=== PATIENT | female | born 1980 | race Caucasian/White ===

== ENCOUNTER 2017-12-12 06:11 | Day surgery (SDC) | payer OTHER ==
[2017-12-04 16:54] VITALS: BMI 33.6
[2017-12-12] MEDS ORDERED: ROPIVACAINE HCL 0.5% 30ML VIAL ONE (07:04)
[2017-12-12] MEDS ORDERED: MIDAZOLAM HCL 2 MG/2 ML SINGLE DOSE VIAL ONE (07:16)
[2017-12-12] MEDS ORDERED: DEXAMETHASONE SOD PHOSPHATE 4 MG/1 ML VIAL ONE (07:16)
[2017-12-12] MEDS ORDERED: SUCCINYLCHOLINE CHLORIDE 200 MG/10 ML VIAL ONE (07:16)
[2017-12-12] MEDS ORDERED: KETOROLAC TROMETHAMINE 30 MG/1 ML VIAL ONE (07:16)
[2017-12-12] MEDS ORDERED: ONDANSETRON 4 MG/2 ML VIAL ONE (07:16)
[2017-12-12] MEDS ORDERED: PROPOFOL 20 ML ONE (07:16)
[2017-12-12] MEDS ORDERED: PROMETHAZINE HCL 25 MG/1 ML VIAL ONE (07:45)
[2017-12-12] MEDS ORDERED: ceFAZolin SODIUM 1 GM VIAL ONE (07:59)
[2017-12-12] MEDS ORDERED: oxyCODONE HCL 5 MG TABLET PO PRN (08:50)
[2017-12-12] MEDS ORDERED: LACTATED RINGERS SOLUTION 1,000 ML IV SCH (09:00)
--- NOTE | 2017-12-12 09:50 | OP ---
DATE OF OPERATION: 12/12/2017 PREOPERATIVE DIAGNOSIS: 1. Left wrist triangular fibrocartilage complex tear. 2. Left wrist extensor carpi ulnaris tendinosis/tendinitis. OPERATIVE PROCEDURE: 1. Left wrist operative arthroscopy with debridement of triangular fibrocartilage complex. 2. Left wrist open tenosynovectomy/tenolysis extensor carpi ulnaris tendon. SURGEON: Sofia Flores MD [employer] OPERATIONS DIRECTOR: ISIDRO Diaz ANESTHESIA: General. COMPLICATIONS: None. ESTIMATED BLOOD LOSS: Minimal. INDICATIONS FOR PROCEDURE: The patient is a 37-year-old female with the above findings who failed conservative management, indicated for operative treatment. The risks, benefits, and alternatives were discussed with the patient at length, and proper informed consent was obtained. DESCRIPTION OF PROCEDURE: After proper identification of the patient and the correct operative site, the patient was brought to the operating room and placed supine on the operating table with prominences well padded. General anesthesia was given. Intravenous antibiotics were given. Left upper extremity was prepped and draped in the usual sterile fashion. Well-padded tourniquet was placed with a sterile prep. Esmarch bandage was used to exsanguinate the left upper extremity. Tourniquet inflated to 250 mmHg. 3-4 and 4-5 portals were established with skin incision, only in blunt dissection down the mid joint capsule. A 2.7-mm arthroscope was used under gravity inflow. Radial carpal joint was observed and found to be free of articular defects except for mild degeneration at the radial aspect of the lunate. A thickened synovitis was noted at the polar aspect of the scapholunate ligament, and this was debrided with the scapholunate ligament intact. Volar radiocarpal ligaments were intact. Scapholunate ligaments triquetral ligaments were intact. TFCC had a longitudinal split tear of the ulnar carpal ligaments as well as dorsal tearing of the TFCC. This was debrided with mechanical shaver down to healthy edge. Trampoline effect was intact, and there was no instability. Wound was irrigated with saline and repaired using 4-0 Monocryl sutures. A longitudinal incision was then made over the extensor carpi ulnaris. Incision was taken sharply through the skin with blunt and sharp dissection through subcutaneous tissues. Ulnar sensory nerve was carefully protected. The extensor carpi ulnaris was identified and released proximal and distal to the ulnar head. Tenosynovectomy was performed. There was mild to moderate tendinosis, which was debrided. Excellent of the tendon was noted at this time. Prior to doing this, the tendon appeared to be adhesed. Wound was irrigated with saline and repaired in layers using 4-0 Vicryl and 4-0 Monocryl sutures. Steri-Strips and sterile dressings were applied. Ropivacaine anesthetic was given intraarticularly for postoperative pain relief. Wound was dressed. Patient was reversed from anesthesia and brought to recovery in stable condition. She tolerated the procedure well Tanvir Lantigua, the butcher assistant, was integral throughout this procedure. This procedure could not have been performed without a skilled operative butcher assistant. SOFIA FLORES M.D. JUAN ANTONIO/[id number]
[2017-12-12 10:38] VITALS: PULSE 71
[2017-12-12 10:45] VITALS: BP 118/70; TEMP 98.6
== END 2017-12-12 10:46 | disposition home or self-care (01) ==
LOC: FASU 06:11
PROVIDERS: ATTEND Orthopaedic Surgery Hand Surgery
PROC: 0LB60ZZ Excision of Left Lower Arm and Wrist Tendon, Open Approach (ICD-10-PCS; 2017-12-12)
PROC: 0RBP4ZZ Excision of Left Wrist Joint, Percutaneous Endoscopic Approach (ICD-10-PCS; principal; 2017-12-12 08:00)
DX: S63.592A Other specified sprain of left wrist, initial encounter (principal); M65.842 Other synovitis and tenosynovitis, left hand; X58.XXXA Exposure to other specified factors, initial encounter; Y93.89 Activity, other specified; Y92.89 Other specified places as the place of occurrence of the external cause

== ENCOUNTER 2022-04-12 06:08 | Day surgery (SDC) | payer BC ==
[2022-04-05 13:55] VITALS: BMI 38.0
[2022-04-12] MEDS ORDERED: ROPIVACAINE HCL 0.5% 30ML VIAL ONE (07:07)
[2022-04-12] MEDS ORDERED: MIDAZOLAM HCL 2 MG/2 ML SINGLE DOSE VIAL ONE (07:14)
[2022-04-12] MEDS ORDERED: PROPOFOL 20 ML ONE (07:14)
[2022-04-12] MEDS ORDERED: SEVOFLURANE 250 ML BTL ONE (07:18)
[2022-04-12] MEDS ORDERED: ceFAZolin SODIUM 1 GM VIAL ONE (07:51)
[2022-04-12] MEDS ORDERED: ONDANSETRON 4 MG/2 ML VIAL ONE ×2 (08:08→08:37)
[2022-04-12] MEDS ORDERED: DEXAMETHASONE SOD PHOSPHATE 4 MG/1 ML VIAL ONE (08:08)
[2022-04-12] MEDS ORDERED: ONDANSETRON 4 MG/2 ML VIAL IVPUSH PRN (08:53)
[2022-04-12] MEDS ORDERED: oxyCODONE HCL 5 MG TABLET PO PRN (08:53)
[2022-04-12] MEDS ORDERED: LACTATED RINGERS SOLUTION 1,000 ML IV SCH (09:00)
[2022-04-12 09:50] VITALS: RESP 16
[2022-04-12 10:14] VITALS: TEMP 98.1
[2022-04-12 12:01] VITALS: BP 115/88; PULSE 88
== END 2022-04-12 10:45 | disposition home or self-care (01) ==
LOC: FASU 06:08
PROVIDERS: ATTEND Orthopaedic Surgery Hand Surgery
PROC: 0LQ50ZZ Repair Right Lower Arm and Wrist Tendon, Open Approach (ICD-10-PCS; 2022-04-12)
PROC: 0RBN4ZZ Excision of Right Wrist Joint, Percutaneous Endoscopic Approach (ICD-10-PCS; principal; 2022-04-12 08:04)
DX: S63.591A Other specified sprain of right wrist, initial encounter (principal); M67.833 Other specified disorders of tendon, right wrist; X58.XXXA Exposure to other specified factors, initial encounter; Y93.9 Activity, unspecified; Y92.9 Unspecified place or not applicable
CPT/HCPCS: 88304-TC; 94760